=== PATIENT | female | born 1975 | race Caucasian/White ===

== ENCOUNTER 2018-03-14 11:59 | Outpatient (REF) | payer MEDICAID, SELFPAY | END 2018-03-14 12:19 | LOC: LBN 11:59 | PROVIDERS: PCP Nurse Practitioner Family; Visit Provider Nurse Practitioner Women's Health | DX: N90.89 Other specified noninflammatory disorders of vulva and perineum (principal); R31.9 Hematuria, unspecified; R10.9 Unspecified abdominal pain | CPT/HCPCS: 87529; 87086 ==

== ENCOUNTER 2018-03-21 14:03 | Outpatient (REF) | payer MEDICAID, SELFPAY ==
--- NOTE | 2018-03-21 13:20 | PAPFT_PTH ---
PATIENT: Darnell Fall LOC: [facility] U#:[id number] AGE/SX: 43/F ROOM: RE03/21/[address]: Daysi Mancini NP : 1975 BED: DIS: 03/21/2018 SPEC #: [id number] RECD: 03/21/18 18:05 STATUS: ELANA REMoses #: [id number] ADOLPH: 03/21/18 13:[address]: Daysi Mancini NP DEPT: [facility] Cytology RECD BY: Jennifer Negrete ENTERED: 03/21/18 18:05 SP TYPE: PAPFT OTHR DR: Alaina Navarrete APRN Tissues: 1 - CX/ENDOCX FOR PAP SMEARS Procedures: PAP THIN PREP/UVM Screening HPV DNA PROBE Comments: [id number] (CHLAMYDIA/GC)
[2018-03-22 13:57] LABS: Chlamydia Result Negative; GC Result Negative; Specimen Description SEE COMMENTS
== END 2018-03-21 14:23 ==
LOC: LBN 14:03
PROVIDERS: PCP Nurse Practitioner Family; Visit Provider Nurse Practitioner Women's Health
DX: Z12.4 Encounter for screening for malignant neoplasm of cervix (principal); Z11.51 Encounter for screening for human papillomavirus (HPV); Z11.3 Encounter for screening for infections with a predominantly sexual mode of transmission
CPT/HCPCS: 87491; 87591; 88142; 87624

== ENCOUNTER 2018-03-29 00:34 | Outpatient (CLI) | payer MEDICAID, SELFPAY ==
--- NOTE | 2018-03-29 12:50 | DI.MAMMO_ITS ---
SYMPTOMS/DIAGNOSIS: SCREENING, Z12.31, BASELINE MAMMOGRAM: Mammograms were interpreted according to the usual protocol including computer analysis with CAD system, tomosynthesis and C view imaging. The breasts are of moderate density with fairly symmetrical distribution of fibroglandular tissue. No dominant mass or clumped microcalcification is identified in either breast. Today's examination is a baseline examination. CONCLUSION: No specific evidence of malignancy at this time. Routine screening examinations are suggested at yearly intervals due to the family history of breast carcinoma. Category I. Breast density Category B. MQSA ASSESSMENT OF FINDINGS: Negative. Category 1. Patient will receive a letter notifying them of these results. BI-RADS category B. There are scattered areas of fibroglandular density.
== END 2018-03-29 00:54 ==
PROVIDERS: PCP Nurse Practitioner Family; Visit Provider Nurse Practitioner Women's Health
DX: Z12.31 Encounter for screening mammogram for malignant neoplasm of breast (principal); Z80.3 Family history of malignant neoplasm of breast
CPT/HCPCS: 77063; 77067

== ENCOUNTER 2018-03-30 00:24 | Outpatient (CLI) | payer MEDICAID, SELFPAY ==
--- NOTE | 2018-03-30 12:49 | DI.US_ITS ---
SYMPTOMS/DIAGNOSIS: PELVIC PAIN LT SIDED, R10.2 PELVIC ULTRASOUND: Pelvic ultrasound was performed transabdominally and transvaginally. Please see the accompanying data sheet for measurements of the pelvic structures. There is a thickened somewhat heterogeneous endometrial stripe measuring up to about 10 mm in thickness. The myometrium is grossly unremarkable in appearance. The ovaries have a normal appearance with little if any visible follicle formation. No free fluid identified in the cul-de-sac. Limited scanning of the kidneys is within normal limits. CONCLUSION: Abnormally thickened endometrial stripe in a meron or postmenopausal patient, consider endometrial biopsy to exclude neoplasm.
== END 2018-03-30 00:44 ==
PROVIDERS: PCP Nurse Practitioner Family; Visit Provider Nurse Practitioner Women's Health
DX: R10.2 Pelvic and perineal pain (principal); R93.89 Abnormal findings on diagnostic imaging of other specified body structures; Z78.0 Asymptomatic menopausal state
CPT/HCPCS: 76830; 76856

== ENCOUNTER 2018-05-09 15:52 | Outpatient (REF) | payer MEDICAID, SELFPAY ==
--- NOTE | 2018-05-09 14:30 | ENDOMET_PTH ---
PATIENT: Darnell Fall LOC: [facility] U#:[id number] AGE/SX: 43/F ROOM: RE05/09/[address]: Daysi Mancini NP : 1975 BED: DIS: 05/09/2018 SPEC #: [id number] RECD: 05/09/18 17:48 STATUS: ELANA REQ #: [id number] ADOLPH: 05/09/18 14:[address]: Addis MARIANO,Daysi DEPT: Surgical Specimen RECD BY: Jennifer Negrete ENTERED: 05/09/18 17:48 SP TYPE: Endomet OTHR DR: Alaina Navarrete APRN Tissues: 1 - ENDOMETRIUM BX/CURRETTE Procedures: GROSS AND MICRO LEVEL 4 Comments: [id number]
== END 2018-05-09 16:12 ==
LOC: LBN 15:52
PROVIDERS: PCP Nurse Practitioner Family; Visit Provider Nurse Practitioner Women's Health
DX: N91.2 Amenorrhea, unspecified (principal); N84.0 Polyp of corpus uteri; N85.8 Other specified noninflammatory disorders of uterus
CPT/HCPCS: 88305

== ENCOUNTER 2018-06-19 13:24 | Outpatient (CLI) | payer MEDICAID, SELFPAY ==
[2018-06-19 14:11] LABS: HCT 46.6 % (36.0-46.0); HGB 15.8 g/dL (12.0-15.5)
[2018-06-19 14:23] LABS: HCG Quant, Pregnancy 2 mIU/mL (1-3)
== END 2018-06-19 13:44 ==
PROVIDERS: PCP Nurse Practitioner Family; Visit Provider Obstetrics & Gynecology
DX: N92.6 Irregular menstruation, unspecified (principal); Z01.818 Encounter for other preprocedural examination
CPT/HCPCS: 36415; 86850; 86900; 86901; 84702; 84703; 85014; 85018

== ENCOUNTER 2018-06-27 07:38 | Day surgery (SDC) | payer MEDICAID, SELFPAY ==
--- NOTE | 2018-06-19 15:32 | W.PM.HP.N ---
Assessment and Plan (1) Irregular menstrual cycle: Current visit: No Status: Acute probable endometrial polyp thickened endometrium on US Plan: Operative hysteroscopy , endometrial polypectomy D+C Procedure explained to patient r/b/a reviewed all questions asked and answered consent reviewed and signed Review of Systems Review of Systems All systems reviewed & are unremarkable except as noted in HPI and below PFSH Surgical History Cholecystectomy Excision, Lesion (04/11/17) Open Carpal Tunnel release (06/14/17) Open Carpal Tunnel release (07/19/17) Tonsillectomy Family History Mother Mental disorder Stroke Father Substance abuse Grandmother Stroke Social History Smoking/Tobacco Use Status: Current every day Female Reproductive History Menstrual Menopause type: natural Meds Home Medications Medication Instructions Recorded Confirmed Type bupropion HCl 450 mg PO DAILY 01/26/13 06/19/18 History albuterol sulfate [Proair Hfa] 1 - 2 puff INHALATION Q4-6H PRN #1 08/25/16 06/19/18 History inhaler blood sugar diagnostic [Glucose #100 strip 09/09/16 05/18/18 History Test Strip] blood-glucose meter #1 unit 09/09/16 05/18/18 History lancets #100 ea 09/09/16 06/19/18 History acetaminophen 1,000 mg PO TID #180 tab-cap 07/19/17 06/19/18 Rx empagliflozin [Jardiance] 25 mg PO DAILY #90 tab-cap 07/26/17 06/19/18 Rx omeprazole 40 mg PO DAILY #90 tab-cap 09/26/17 06/19/18 Rx metformin 1,000 mg PO BID #180 tab-cap 10/02/17 06/19/18 Rx escitalopram oxalate 20 mg PO DAILY tab-cap 11/02/17 06/19/18 History lamotrigine 150 mg PO BID tab-cap 11/08/17 06/19/18 History Atorvastatin Calcium 20 mg PO DAILY #90 tab-cap 12/07/17 06/19/18 Clinic aspirin [Aspir 81] 81 mg PO DAILY #90 tab-cap 12/07/17 06/19/18 Rx sitagliptin [Januvia] 100 mg PO DAILY #90 tab-cap 12/07/17 06/19/18 Rx Allergies Allergy/AdvReac Type Severity Reaction Status Date / Time CALAMARI Allergy Severe ANAPHALXIS, Uncoded 06/19/18 14:59 hives Exam Const General: cooperative Nutritional Appearance: obese Orientation: alert and awake Chest Chest: normal inspection of the chest Resp Effort & Inspection: normal respiratory effort Auscultation: clear to auscultation bilaterally Cardio Palpation: normal PMI Rate: regular rate Rhythm: regular rhythm Heart Sounds: S1 normal and S2 normal GI Inspection: normal to inspection Palpation: soft External Female Exam: external appearance normal Speculum Exam - Vagina: normal appearance of the vagina Speculum Exam - Cervix: normal appearance of the cervix Bimanual Exam- Vagina & Uterus: normal bimanual exam Other: pelvic us 10 mm endometrial thickness endometrial bx 05/22 suggestive of endometrial polyp
[2018-06-27] VITALS (13 sets, daily range): BP systolic 145–174; BP diastolic 79–115; PULSE 74–95; RESP 13–39; TEMP 35.6–36.6; O2SAT 92–99
[2018-06-27] MEDS: Lactated Ringers 1,000 ML 125 ML IV ×2 (08:32→14:07)
[2018-06-27] MEDS: Insulin REGULAR-Human 100 UNITS/ML UNIT 8 UNITS IV (09:08)
[2018-06-27] MEDS: Ketorolac 30 MG/ML VIAL IVP (11:45)
--- NOTE | 2018-06-27 12:11 | ENDOMET_PTH ---
PATIENT: Darnell Fall LOC: [facility] U#:[id number] AGE/SX: 43/F ROOM: RE06/27/[address]: Elizabeth Pineda MD : 1975 BED: DIS: 06/27/2018 SPEC #: [id number] RECD: 06/27/18 17:19 STATUS: ELANA REMoses #: [id number] ADOLPH: 06/27/18 12:[address]: Elizabeth Pineda DEPT: Surgical Specimen RECD BY: Jennifer Negrete ENTERED: 06/27/18 17:24 SP TYPE: Endomet OTHR DR: Alaina Navarrete APRN Tissues: 1 - ENDOMETRIUM BX/CURRETTE Procedures: GROSS AND MICRO LEVEL 4 Comments: [id number]
[2018-06-27] MEDS: fentaNYL 100 MCG/2 ML VIAL IVP ×2 (12:50→13:14)
[2018-06-27] MEDS: HYDROmorphone 2 MG/ML VIAL IVP (13:57)
[2018-06-27] MEDS: Normal Saline Flush 10 ML SYR IV (13:57)
[2018-06-27] MEDS: Ketorolac 15 MG/ML VIAL IVP (15:22)
[2018-06-27] MEDS: HYDROcodone 5/Acetaminophen 325 TAB PO (16:05)
--- NOTE | 2018-06-28 10:41 | ROE_ITS ---
REPORT OF OPERATIVE PROCEDURE DATE OF PROCEDURE June 27, 2018 PREOPERATIVE DIAGNOSES 1. Menorrhagia. 2. Dysfunctional uterine bleeding. POSTOPERATIVE DIAGNOSES 1. Menorrhagia. 2. Dysfunctional uterine bleeding. 3. Endometrial polyp. PROCEDURES SURGEON Elizabeth Pineda M.D. ANESTHESIA General. COMPLICATIONS None. ESTIMATED BLOOD LOSS Less than 50 cc HYSTEROSCOPIC FLUID DEFICIT 300 cc FINDINGS Thickened irregular proliferative endometrium with central endometrial polyp. PROCEDURE The patient was taken to the Operating Room, where she was properly identified. She was then placed on the operating table in a dorsal supine position. General Anesthesia was induced without difficult y. She was then placed in the dorsal lithotomy position. Novatriss boots were on. She was prepped and [place] ped in a normal sterile fashion. A formal time-out procedure was then performed, confirming patient and procedure with all surgical personnel present. A red rubber catheter was then used to drain the b ladder of clear urine. A bivalved speculum was placed. The cervix was visualized, grasped on the anterior lip with a single -tooth tenaculum. The cervix was dilated to #16-Martiniquais using the Ramos dilators. The hysteroscope wa s advanced into the uterine cavity without difficulty. A thorough inspection ensued with the findings above. The MyoSure apparatus was advanced through the hysteroscope into the uterine cavity and a tho rough morcellation of the polyp and thickened endometrium was performed. Post procedure, both ostia w ere visible and the endometrium was thin and homogenous without endometrial polyp. The pathology spec imen was sent to pathology for permanent evaluation. All equipment was removed from the uterus. The s brett-tooth tenaculum was removed. There was no bleeding from the tenaculum site. Hemostasis was conf irmed. the patient was awakened and taken to Recovery in stable condition. Sponge, lap, needle and in strument counts were correct x2. CC: [facility]
== END 2018-06-27 16:45 | disposition home or self-care (01) ==
PROVIDERS: PCP Nurse Practitioner Family; Visit Provider Obstetrics & Gynecology
PROC: 0UDB8ZZ Extraction of Endometrium, Via Natural or Artificial Opening Endoscopic (ICD-10-PCS; CPT 58558; principal; 2018-06-27 10:00)
DX: N92.0 Excessive and frequent menstruation with regular cycle (principal); N93.8 Other specified abnormal uterine and vaginal bleeding; N84.0 Polyp of corpus uteri; F17.210 Nicotine dependence, cigarettes, uncomplicated
CPT/HCPCS: 58558; 88305; NC; J1100; J1885; J2250; J2405; J3010

== ENCOUNTER 2019-02-20 14:42 | Outpatient (CLI) | payer MEDICAID, SELFPAY ==
[2019-02-20 16:48] LABS: Ferritin 268 ng/mL (8-388); Magnesium 1.9 mg/dL (1.8-2.4)
== END 2019-02-20 15:02 ==
PROVIDERS: PCP Nurse Practitioner Family; Visit Provider Nurse Practitioner
DX: G47.62 Sleep related leg cramps (principal)
CPT/HCPCS: 36415; 82728; 83735

== ENCOUNTER 2019-04-19 00:52 | Outpatient (CLI) | payer MEDICAID, SELFPAY ==
--- NOTE | 2019-04-19 07:57 | DI.US_ITS ---
EXAM: US PELVIS TRANSVAGINAL CLINICAL HISTORY: focal atypical hyperplasia on EM Bx, N85.02 TECHNIQUE: Ultrasound performed using standard protocol. COMPARISON: US PELVIS TRANSVAGINAL from 03/30/2018 FINDINGS: The uterus measures 6.4 cm long by 2.8 cm AP x 4.2 cm transverse. The endometrial stripe is within n ormal limits at 3.3 millimeters. There is a tiny amount of fluid seen within the endometrial canal. The right ovary measures 1.6 x 0.7 x 0.7 centimeters. The left ovary measures 1.8 x 1.5 x 1.4 centim eters. The ovaries are unremarkable. There is normal blood flow to the ovaries. No evidence of tor marylu. No free pelvic fluid or hydronephrosis. IMPRESSION: Tiny amount of free fluid within the endometrial canal. Otherwise unremarkable pelvic ultrasound.
[2019-04-19 09:16] LABS: Hemoglobin A1C 10.3 % (4.5-6.2)
[2019-04-19 10:41] LABS: COMMENT (LAB VIEW ONLY) 18.65 mg/dL; Microalb ug/mg Crea 24.1 ug/mg Cr
[2019-04-19 10:42] LABS: ALT 69 U/L (14-59); AST 28 U/L (15-37); Albumin 3.4 g/dL (3.4-5.0); Alkaline Phosphatase 159 U/L (46-116); Anion Gap 9.6 mmol/L (3-11); BUN 7 mg/dL (7-18); Bilirubin, Total 0.4 mg/dL (0.2-1.0); CO2 29.4 mmol/L (21.0-32.0); CREATININE 0.88 mg/dL (0.55-1.02); Calcium 8.9 mg/dL (8.5-10.1); Calculated LDL 98 mg/dL; Chloride 102 mmol/L (98-107); Cholesterol 167 mg/dL (50-200); Glucose 285 mg/dL (70-100); HDL Cholesterol 49 mg/dL (40-60); Potassium 3.9 mmol/L (3.5-5.1); Sodium 141 mmol/L (136-145); Total Protein 6.4 g/dL (6.4-8.2); Triglyceride 101 mg/dL (30-150)
== END 2019-04-19 01:12 ==
PROVIDERS: PCP Nurse Practitioner Family; Visit Provider Obstetrics & Gynecology
DX: N85.02 Endometrial intraepithelial neoplasia [EIN] (principal); E11.9 Type 2 diabetes mellitus without complications; E78.5 Hyperlipidemia, unspecified
CPT/HCPCS: 36415; 80053; 80061; 76830; 76856; 82043; 82570; 83036

== ENCOUNTER 2019-04-25 11:51 | Outpatient (REF) | payer MEDICAID, SELFPAY ==
--- NOTE | 2019-04-25 11:20 | ENDOMET_PTH ---
PATIENT: Darnell Fall LOC: [facility] U#:[id number] AGE/SX: 44/F ROOM: RE04/25/[address]: Tone Tidwell MD : 1975 BED: DIS: 04/25/2019 SPEC #: [id number] RECD: 04/25/19 17:24 STATUS: ELANA REMoses #: [id number] ADOLPH: 04/25/19 11:[address]: Tone Tidwell DEPT: Surgical Specimen RECD BY: Jennifer Negrete ENTERED: 04/25/19 17:25 SP TYPE: Endomet OTHR DR: Alaina Navarrete APRN Tissues: 1 - ENDOMETRIUM BX/CURRETTE Procedures: GROSS AND MICRO LEVEL 4 Comments: [id number]
== END 2019-04-25 12:11 ==
LOC: LBN 11:51
PROVIDERS: PCP Nurse Practitioner Family; Visit Provider Obstetrics & Gynecology
DX: N92.6 Irregular menstruation, unspecified (principal); N91.2 Amenorrhea, unspecified; Z87.410 Personal history of cervical dysplasia
CPT/HCPCS: 88305

== ENCOUNTER 2020-01-13 02:26 | Outpatient (CLI) | payer MEDICAID, SELFPAY ==
[2020-01-13 14:01] LABS: COMMENT (LAB VIEW ONLY) 70.62 mg/dL; Microalb ug/mg Crea 10.6 ug/mg Cr
[2020-01-13 14:12] LABS: Prothrombin Time 9.6 sec (9.3-11.0)
[2020-01-13 14:50] LABS: ALT 41 U/L (14-59); AST 32 U/L (15-37); Albumin 3.1 g/dL (3.4-5.0); Alkaline Phosphatase 120 U/L (46-116); Anion Gap 10.2 mmol/L (3-11); BUN 8 mg/dL (7-18); Bilirubin, Total 0.4 mg/dL (0.2-1.0); CO2 25.8 mmol/L (21.0-32.0); CREATININE 0.89 mg/dL (0.55-1.02); Calcium 8.6 mg/dL (8.5-10.1); Calculated LDL 108 mg/dL (<100); Chloride 105 mmol/L (98-107); Cholesterol 163 mg/dL (<200); Glucose 159 mg/dL (74-106); HDL Cholesterol 35 mg/dL (40-60); Sodium 141 mmol/L (136-145); Total Protein 5.9 g/dL (6.4-8.2); Triglyceride 103 mg/dL (<150)
== END 2020-01-13 02:46 ==
PROVIDERS: PCP Nurse Practitioner Family; Visit Provider Nurse Practitioner Family
DX: R60.0 Localized edema (principal); E11.9 Type 2 diabetes mellitus without complications; E78.5 Hyperlipidemia, unspecified
CPT/HCPCS: 80053; 80061; 82043; 82570; 84443; 85610

== ENCOUNTER 2020-02-19 01:34 | Outpatient (CLI) | payer MEDICAID, SELFPAY ==
--- NOTE | 2020-02-19 06:15 | DI.US_ITS ---
EXAM: US ABDOMEN INDICATION: hypoalbuminemia,edema both feet,? cirrhosis,e88.09 COMPARISON: US US PELVIS TRANSVAGINAL from 04/19/2019 TECHNIQUE: Ultrasound abdomen performed using standard protocol FINDINGS: Abdominal ultrasound was performed according to the usual protocol. The liver is incompletely visualized, hepatic parenchyma is echogenic and of coarse texture, presumed hepatic steatosis.. No specific evidence of cirrhosis on this limited scan. Patient has had a prior cholecystectomy. No biliary dilatation. Pancreas appears intact as visualized. Spleen is unremarkable in appearance with no focal lesion. Kidneys are normal in size and shape. No renal mass, hydronephrosis, or nephrolithiasis. Abdominal aorta and IVC are of normal diameter. IMPRESSION: Presumed hepatic steatosis. Otherwise unremarkable examination post cholecystectomy.
== END 2020-02-19 01:54 ==
PROVIDERS: PCP Nurse Practitioner Family; Visit Provider Nurse Practitioner Family
DX: R60.0 Localized edema (principal); E88.09 Other disorders of plasma-protein metabolism, not elsewhere classified; Z90.49 Acquired absence of other specified parts of digestive tract
CPT/HCPCS: 76700

== ENCOUNTER 2020-03-18 02:12 | Outpatient (CLI) | payer MEDICAID, SELFPAY ==
[2020-03-18 09:54] LABS: Abs Immature Grans 0.06 10^3/uL (0.0-0.06); Absolute Basophil Count 0.03 10^3/uL (0.0-0.2); Absolute Eosinophil Count 0.48 10^3/uL (0.0-0.7); Absolute Lymphocyte Count 2.43 10^3/uL (1.2-3.4); Basophils % 0.3; Eosinophils % 4.5; HCT 46.4 % (36.0-46.0); HGB 15.6 g/dL (11.2-15.7); Immature Grans % 0.6; Lymphocytes % 22.7; MCH 30.8 pg (27.0-33.0); MCHC 33.6 % (32.0-36.0); MCV 91.7 fL (80-95); MPV 11.8 fL (8.0-11.0); Monocytes % 7.5; Neutrophils % 64.4; Nucleated RBC 0 %; Platelet Count 177 10^3/uL (130-400); RBC 5.06 10^6/uL (3.93-5.22); RDW 13.6 % (11.7-14.6); RDW-SD 45.7 fL
[2020-03-18 10:19] LABS: Iron 59 ug/dL (50-170); Total Iron Binding Capacity 241 ug/dL (250-450); Transferrin Sat 24 % (15-50)
[2020-03-18 10:30] LABS: Ferritin 247 ng/mL (8-252); GGT 479 U/L (5-55)
[2020-03-19 09:26] LABS: HBs Antibody, Quant <3.1 mIU/mL (See Note); Hepatitis B Surface Ab Negative (See Note)
[2020-03-19 09:32] LABS: Hepatitis B Surface Ag Negative (Negative)
[2020-03-19 10:15] LABS: Hepatitis C Ab w Rflx HCV PCR Negative (Negative)
[2020-03-19 11:06] LABS: Hep A Total Ab w Rflx IgM Positive (Negative)
[2020-03-19 12:32] LABS: Hep A Antibody IgM Negative (Negative)
== END 2020-03-18 02:32 ==
PROVIDERS: PCP Nurse Practitioner Family; Visit Provider Nurse Practitioner Family
DX: K76.0 Fatty (change of) liver, not elsewhere classified (principal)
CPT/HCPCS: 36415; 86706; 86709; 86803; 87340; 82728; 82977; 83540; 83550; 85025; 86704

== ENCOUNTER 2021-05-21 01:48 | Outpatient (CLI) | payer MEDICAID, SELFPAY ==
--- NOTE | 2021-05-21 09:42 | DI.RAD_ITS ---
Exam(s) XR SCOLIOSIS T-L SPINE EXAM: XR SCOLIOSIS T-L SPINE CLINICAL HISTORY: Scoliosis evaluation. TECHNIQUE: 2D digital imaging was performed. COMPARISON: No exams were available for comparison FINDINGS: Scoliosis: No significant scoliosis is identified. There is a curvature of less than 1 degree. Vertebrae: No anomalies seen. Moderate degenerative changes are seen in the cervical, thoracic and montse mbar spines. Remainder of the visualized osseous and soft tissue structures: No acute findings. Surgical clips are seen in the right upper quadrant of the abdomen. IMPRESSION: No significant thoracolumbar scoliosis. DATA REPOSITORY: RADIATION DOSE DELIVERED:
== END 2021-05-21 02:08 ==
PROVIDERS: PCP Nurse Practitioner Adult Health; Visit Provider Nurse Practitioner Adult Health
DX: M54.89 Other dorsalgia (principal); R10.9 Unspecified abdominal pain
CPT/HCPCS: 72081

== ENCOUNTER 2021-06-01 02:54 | Outpatient (CLI) | payer MEDICAID, SELFPAY ==
[2021-06-01 09:55] LABS: HCT 45.5 % (36.0-46.0); MCH 29.8 pg (27.0-33.0); MCV 90.5 fL (80-95); MPV 10.3 fL (8.0-11.0); Platelet Count 241 10^3/uL (130-400); RBC 5.03 10^6/uL (3.93-5.22); RDW 13.4 % (11.7-14.6); RDW-SD 43.9 fL; WBC 13.59 10^3/uL (4.4-10.8)
[2021-06-01 11:08] LABS: ALT 26 U/L (14-59); AST 13 U/L (15-37); Albumin 3.1 g/dL (3.4-5.0); Alkaline Phosphatase 113 U/L (46-116); Anion Gap 7.8 mmol/L (3-11); BUN 11 mg/dL (7-18); Bilirubin, Total 0.3 mg/dL (0.2-1.0); CO2 30.2 mmol/L (21.0-32.0); CREATININE 0.9 mg/dL (0.55-1.02); Calculated LDL 189 mg/dL (<100); Chloride 101 mmol/L (98-107); Cholesterol 249 mg/dL (<200); Glucose 210 mg/dL (74-106); HDL Cholesterol 39 mg/dL (40-60); Potassium 4.5 mmol/L (3.5-5.1); Sodium 139 mmol/L (136-145); TSH (W/Ref FT4) 2.05 uIU/mL (0.36-3.74); Total Protein 6.2 g/dL (6.4-8.2); Triglyceride 109 mg/dL (<150)
[2021-06-02 09:49] LABS: Hepatitis C Ab w Rflx HCV PCR Negative (Negative)
== END 2021-06-01 02:55 | disposition home or self-care (01) ==
LOC: LBO 02:54
PROVIDERS: PCP Nurse Practitioner Adult Health; Visit Provider Nurse Practitioner Adult Health
DX: E11.42 Type 2 diabetes mellitus with diabetic polyneuropathy (principal); E66.01 Morbid (severe) obesity due to excess calories; E78.5 Hyperlipidemia, unspecified; Z11.59 Encounter for screening for other viral diseases
CPT/HCPCS: 36415; 80053; 80061; 85027; 86803; 84443

== ENCOUNTER 2021-06-22 00:22 | Outpatient (CLI) | payer MEDICAID, SELFPAY ==
--- NOTE | 2021-06-22 08:00 | ETT_ITS ---
APPROVED REPORT Exam: Exercise Treadmill Patient Location: Out-Patient Room/Bed: Stress Nurse: Luda Giordano RN Ordering Provider:INGRIS PORTILLO, Contact Number: [phone] BMI: 40.16 Baseline Rhythm: Sinus Rhythm Indications: CHEST PAIN Medical History Medical History: Diabetic neuropathy, Anxiety, Depression, DM, RY, GERD, HLD, Tobacco abuse, Obesity Cardiac Medications: Omeprazole, Glipizide, Atorvastatin, Albuterol sulfate inhaler Allergies: No known drug allergies Cardiac Risk Factors: Hyperlipidemia, Diabetes (non-insulin), FHX of CAD, Smoking (current), Asthma, Obesity Previous Cardiac Procedures: None Pretest Chest Pain Characteristics: Non-exertional Chest pain, 1/10 left sternal pressure that has be en present since waking up this morning. Exercise History: Sedentary Physical Disabilities: None Lung Sounds: LCTA/diminished Stress Test Details Test: Exercise stress testing was performed using a Jd protocol. Rest Stress HR Resting HR Supine: 76 bpm Max Heart Rate (APMHR): 173 bpm Resting HR Standin bpm Target HR (85% APMHR): 147 bpm Max HR Achieved: 156 bpm % of APMHR: 90 Recovery HR: 88 bpm HR response to stress: Accelerated HR response to stress BP Resting BP Supine: 160/86 mmHg Resting BP Standin/90 mmHg Max BP: 216/88 mmHg Recovery BP: 144/72 mmHg BP response to stress: Normal blood pressure response to stress. Comment: unable to obtain BP during exercise and in first minute of recovery. ECG Resting ECG: Sinus Rhythm Ectopy: None Comment: T wave inversion in lead III when patient standing. Stress ECG: Sinus Tachycardia ST Change: No significant ST segment changes noted Arrhythmia: rare PVC Recovery ECG: Sinus Rhythm Recovery ST Change: No significant ST segment changes noted Recovery Arrhythmia: rare PVC Comment: T wave inversion present when standing in lead III returned to upright position once lying d own. Clinical Reason for Termination: Dyspnea Stress Symptoms: Dyspnea, Leg Fatigue Exercise duration: 2 min10 sec Highest Stage Reached: Stage 1: 1.7 mph at 10% grade. Exercise capacity: 4.64 METs Silveira Treadmill Score: 1.7 Rate Pressure Product: 27752 Stress ECG Conclusion 1. Resting electrocardiogram was within normal limits 2. Patient exercised on the Jd protocol and completed a workload of 4.64 METS, stopping due to beto rtness of breath and leg fatigue 3. Rapid increase in heart rate with exercise suggests deconditioning. Patient achieved 90% of predi cted heart rate for age 4. There was no electrocardiographic evidence of myocardial ischemia 5. Rare PVCs were seen Silveira Treadmill Score is 1.7 which is Moderate risk. Stress Test Summary STAGE Time (mins) Speed (mph) Grade (%) HR BP SYMPTOMS METS Supine 76 160/86 Standing 94 144/90 SpO2 99% 1 3 1.7 10 severe SOB; SpO2 98% 4.6 1 min recovery 133 3 min recovery 101 216/88 mild SOB 6 min recovery 88 144/72 Patient did not endorse change in chest pressure during exercise test. Chest pressure remained a cons tant 06/14. Patient did stumble and fall to knees when transitioning from treadmill to strecher. Rosina nt states this happens, my legs just give out. Patient denies any dizziness or lightheadedness that would have caused a fall, relates it to leg fatigue.
== END 2021-06-22 00:42 ==
PROVIDERS: PCP Nurse Practitioner Adult Health; Visit Provider Nurse Practitioner Adult Health
DX: R07.9 Chest pain, unspecified (principal); E78.5 Hyperlipidemia, unspecified; E11.9 Type 2 diabetes mellitus without complications; Z82.49 Family history of ischemic heart disease and other diseases of the circulatory system; F17.210 Nicotine dependence, cigarettes, uncomplicated; J45.909 Unspecified asthma, uncomplicated; E66.9 Obesity, unspecified
CPT/HCPCS: 93017

== ENCOUNTER 2021-07-12 03:41 | Outpatient (CLI) | payer MEDICAID, SELFPAY ==
[2021-07-12 07:58] LABS: Abs Immature Grans 0.06 10^3/uL (0.0-0.06); Absolute Basophil Count 0.04 10^3/uL (0.0-0.2); Absolute Eosinophil Count 0.34 10^3/uL (0.0-0.7); Absolute Lymphocyte Count 3.38 10^3/uL (1.2-3.4); Absolute Monocyte Count 1.18 10^3/uL (0.1-0.8); Absolute Neutrophil Count 8.58 10^3/uL (1.2-6.7); Basophils % 0.3; Eosinophils % 2.5; HCT 45.9 % (36.0-46.0); HGB 15.1 g/dL (11.2-15.7); Immature Grans % 0.4; Lymphocytes % 24.9; MCH 29.7 pg (27.0-33.0); MCHC 32.9 % (32.0-36.0); MCV 90.4 fL (80-95); MPV 10.1 fL (8.0-11.0); Monocytes % 8.7; Neutrophils % 63.2; Nucleated RBC 0 %; Platelet Count 226 10^3/uL (130-400); RBC 5.08 10^6/uL (3.93-5.22); RDW 13.5 % (11.7-14.6); RDW-SD 45.2 fL; WBC 13.58 10^3/uL (4.4-10.8)
[2021-07-12 08:08] LABS: Hemoglobin A1C 7.7 % (<5.7)
[2021-07-12 09:11] LABS: Calculated LDL 116 mg/dL (<100); Cholesterol 177 mg/dL (<200); HDL Cholesterol 41 mg/dL (40-60); Triglyceride 101 mg/dL (<150)
== END 2021-07-12 03:42 | disposition home or self-care (01) ==
LOC: LBO 03:42
PROVIDERS: PCP Nurse Practitioner Adult Health; Visit Provider Nurse Practitioner Adult Health
DX: E11.65 Type 2 diabetes mellitus with hyperglycemia (principal); E78.5 Hyperlipidemia, unspecified; D72.828 Other elevated white blood cell count
CPT/HCPCS: 36415; 80061; 83036; 85025

== ENCOUNTER 2021-08-09 03:17 | Outpatient (CLI) | payer MEDICAID, SELFPAY ==
--- NOTE | 2021-08-09 07:00 | DI.MAMMO_ITS ---
Exam(s) MAMMO SCREENING EXAM: MAMMO SCREENING CLINICAL HISTORY: screening,Z12.39 TECHNIQUE: Mammograms were interpreted according to the usual protocol including computer analysis w [email or web address] CAD system, tomosynthesis and C-view imaging. COMPARISON: 2018 FINDINGS: The breasts are composed of scattered fibroglandular densities, Breast Density category B. No suspicious masses or suspicious microcalcifications are seen. No skin thickening or abnormal axillary lymph nodes are seen. There has been no significant change from prior exams. IMPRESSION: BI-RADS Category 1, Negative mammogram Yearly screening mammography is recommended. Breast Density - Category B, scattered fibroglandular densities. A negative radiographic report should not delay biopsy if a dominant or clinically suspicious mass is present. Up to ten percent of cancers are not identified on mammography. A negative report may reinforce clinical impression. Adenosis and dense breasts may obscure an underlying neoplasm. False positive reports average 6 to 10%. Patient will receive a letter notifying them of these results.
== END 2021-08-09 03:37 ==
PROVIDERS: PCP Nurse Practitioner Adult Health; Visit Provider Nurse Practitioner Adult Health
DX: Z12.31 Encounter for screening mammogram for malignant neoplasm of breast (principal)
CPT/HCPCS: 77063; 77067

== ENCOUNTER 2021-08-19 02:00 | Outpatient (CLI) | payer MEDICAID, SELFPAY ==
--- NOTE | 2021-08-19 10:30 | DI.CT_ITS ---
Exam(s) CT CHEST/ABD/PEL W EXAM: CT CHEST/ABD/PEL W CLINICAL HISTORY: r/o suspicious mass/malignancy,WT LOSS,NAUSEA,VOMITING,RT SIDED BACK PAIN. TECHNIQUE: Imaging Protocol: Axial computed tomography images with coronal and sagittal reformatted images were created and reviewed CONTRAST MATERIAL: Intravenous: Omnipaque 350 Contrast volume:100 ml Oral: Yes. Oral contrast was administered for bowel opacification COMPARISON: No exams were available for comparison FINDINGS: CHEST: LUNGS: There are no infiltrates nor pleural effusions. No ominous pulmonary nodules. No focal findi ngs in trachea and mainstem bronchi. No bronchiectasis.. MEDIASTINUM: There is no hilar nor mediastinal adenopathy. Visualized thyroid unremarkable. CARDIAC: Heart size is normal. There is no pericardial effusion.Caliber of the thoracic aorta is wit hin normal limits. OSSEOUS: Small sclerotic bone density noted in the T11 vertebral body measuring 5 x 4 millimeters, pr obably benign bone island. No lytic osseous lesions evident.. ABDOMEN: There is no ascites. LIVER: There are no focal hepatic lesions nor dilatation of intrahepatic ducts. GALLBLADDER/BILIARY: The gallbladder is surgically absent. For CBD is not dilated. PANCREAS: No evidence of pancreatic mass nor dilatation of the pancreatic duct. SPLEEN: Spleen is not enlarged. There are no intrasplenic lesions. Splenic and portal veins are fraser nt. ADRENALS: There are small nodules at the genu of both adrenal glands,. KIDNEYS: Tiny cyst in the medial cortex of the left kidney lower pole measuring 4 millimeters. No ot her significant focal findings in the left kidney. A tiny 3 millimeter cyst is also noted in the opp osite-right kidney. No solid renal lesions. No calculi nor hydronephrosis. ABDOMINAL AORTA: Somewhat atherosclerotic but not enlarged. LYMPH NODES: There is no nauohuolfzaooce-ubnv-ccrant adenopathy. There are no abnormal mesenteric ma sses evident. ABDOMINAL WALL: No evidence of significant anterior abdominal wall nor inguinal hernia. GI: There is no evidence of bowel obstruction. PELVIS: LYMPH NODES: There is no intrapelvic nor inguinal adenopathy. GI: No evidence of appendicitis.No evidence of sigmoid diverticulitis. URINARY BLADDER: Some circumferential bladder wall thickening is noted. REPRODUCTIVE: Uterus and adnexal regions appear unremarkable. No free fluid. OSSEOUS: No significant osseous lesions. Advanced chronic disc space narrowing at L4-5 and L5-S1 levels noted. Posterior osseous ridging note d at these 2 levels. No lytic osseous lesions identified. IMPRESSION: 1. No significant lung findings and no intrathoracic adenopathy. No pleural effusions. 2. The gallbladder surgically absent. The biliary tree is not dilated. 3. Benign-appearing sclerotic bone lesion noted in the T11 vertebral body, measuring 5 x 4 x 7 millim eter. This is probably benign bone island. There are no lytic osseous lesions. 4. One tiny cyst in each kidney, both measuring less than 1 cm. No solid renal masses. No calculi n or hydronephrosis. RADIATION DOSE DELIVERED: 1,969.02mGy.cm Total DLP DATA REPOSITORY: All CT scans at this facility are submitted to the National Radiology Data Registry (NRDR) Dose Index Registry (DIR) with the [employer] (ACR). RADIATION OPTIMIZATION: All CT scans at this facility use at least one of these dose optimization te chniques: automated exposure control; mA and/or kV adjustment per patient size (includes targeted exa ms where dose is matched to clinical indication); or iterative reconstruction.
[2021-08-19] MEDS: Breeza Beverage 473 ML BTL 950 ML PO (10:33)
[2021-08-19] MEDS: Omnipaque 350 MG/ML 50 ML BTL IJ (10:33)
[2021-08-19] MEDS: Omnipaque 350 MG/ML 100 ML BTL IJ (10:34)
== END 2021-08-19 02:20 ==
PROVIDERS: PCP Nurse Practitioner Adult Health; Visit Provider Nurse Practitioner Adult Health
DX: R63.4 Abnormal weight loss (principal); R11.2 Nausea with vomiting, unspecified; N28.1 Cyst of kidney, acquired; N32.89 Other specified disorders of bladder; Z90.49 Acquired absence of other specified parts of digestive tract; M54.89 Other dorsalgia
CPT/HCPCS: 74177; 71260; J3490; Q9967

== ENCOUNTER 2021-09-01 16:22 | Outpatient (REF) | payer MEDICAID, SELFPAY ==
--- NOTE | 2021-09-01 15:15 | PAPFT_PTH ---
PATIENT: Darnell Fall LOC: [facility] U#:[id number] AGE/SX: 46/F ROOM: RE09/01/[address]: Elma Jose DO : 1975 BED: DIS: 09/01/2021 SPEC #: [id number] RECD: 09/01/21 18:09 STATUS: ELANA REQ #: [id number] ADOLPH: 09/01/21 15:[address]: Elma Jose DEPT: [facility] Cytology RECD BY: Jennifer Negrete ENTERED: 09/01/21 18:10 SP TYPE: PAPFT OTHR DR: Cristiane Dubose APRN Tissues: 1 - CX/ENDOCX FOR PAP SMEARS Procedures: PAP THIN PREP/UVM Screening HPV DNA PROBE Comments: [id number]
--- OUTSIDE RECORDS SUMMARY | 2021-09-01 16:28 | XMS_ITS ---
:1975 Author Care Team Providers Name Role Phone [facility] Primary Care Provider [phone] KAYLENE GOLDBERG [facility] Primary Care Provider [phone] [facility] OTHER [phone] Allergies Code Code System Name Reaction Severity Status Onset Shellfish ? ? Active ? Derived Squid ? ? Active ? Medications Name Status Start Date Stop Date ? ? bupropion HCl XL 150 mg 24 hr tablet, extended release Active ? Not available Take 1 tablet every day by oral route. DILT-CD 180 mg capsule,extended release Active ? Not available Take 1 capsule every day by oral route. Imitrex 50 mg tablet Active ? Not availab le Take 1 tablet as needed by oral route. melatonin Active ? Not available 5 mg daily at bedtime omeprazole 20 mg capsule,delayed release Active ? Not available Take 1 capsule every day by oral route. ropinirole 1 mg tablet Active ? Not avail able TAKE 1 TABLET BY MOUTH 2 TO 3 HOURS BEFORE BEDTIME sertraline 100 mg tablet Active ? Not denice ilable Take 1 tablet every day by oral route. Slow-Mag 71.5 mg tablet,delayed release Active ? Not available Take 1 tablet twice a day by oral route for 30 days. Vitamin B-2 100 mg tablet Active ? Not a vailable Take 2 tablets twice a day by oral route. Problems Name Status Onset Date Source ? Type 2 Diabetes Mellitus Active 01/31/2019 ? Obesity Active 01/31/2019 ? Anxiety Active 01/31/2019 ? Tobacco User Active 01/31/2019 ? Depressive Disorder Active 01/31/2019 ? Insomnia Active 01/31/2019 ? Asthma Active 01/31/2019 ? Cramp in Lower Limb Active 01/31/2019 ? Snoring Active 01/31/2019 ? Nocturia Active 01/31/2019 ? Hypnapompic Hallucinations Active 01/31/2019 ? Obstructive Sleep Apnea Syndrome Active ? ? Restless Legs Active ? ? Procedures Date Name Performed by ? 01/31/2019 Polysomnogram Information not avai lable Results Lab Results Date Name Specimen Result Interpretation Description Value Range Status Address ? 02/20/2019 Magnesium, ? No observation ? ? ? [facility] or recorded. [facility]: [address] [place] [address] r, [facility] 02/20/2019 Ferritin, ? No observation ? ? ? [facility] or recorded. [facility]: [address] [place] [address], [facility] Past Encounters None recorded. Social History Tobacco Smoking Status Current Every Day Smoker Notes: 1/ 2ppd, started at age 6 Vaccine List None recorded. Plan of Care Reminders Provider Appointments None ? ? recorded. Lab None ? ? recorded. Referral None ? ? recorded. Procedures None ? ? recorded. Surgeries None ? ? recorded. Imaging None ? ? recorded. Vitals Height Weight BMI Blood Pressure 167.64 cm 129.95 kg 46.2 kg/m2 120/81.97 mm[Hg ]
== END 2021-09-01 16:23 | disposition home or self-care (01) ==
LOC: LBN 16:22
PROVIDERS: PCP Nurse Practitioner Adult Health; Visit Provider Obstetrics & Gynecology
DX: Z12.4 Encounter for screening for malignant neoplasm of cervix (principal); Z11.51 Encounter for screening for human papillomavirus (HPV); Z87.410 Personal history of cervical dysplasia
CPT/HCPCS: 88142; 87624

== ENCOUNTER 2021-09-08 03:01 | Outpatient (CLI) | payer MEDICAID, SELFPAY ==
[2021-09-08 15:30] LABS: TSH (W/Ref FT4) 1.97 uIU/mL (0.36-3.74)
[2021-09-08 22:13] LABS: Estradiol 27 pg/mL (See Note)
[2021-09-08 22:30] LABS: Prolactin 6.8 ng/mL (See Note)
== END 2021-09-08 03:02 | disposition home or self-care (01) ==
LOC: LBO 03:02
PROVIDERS: PCP Nurse Practitioner Adult Health; Visit Provider Obstetrics & Gynecology
DX: N91.2 Amenorrhea, unspecified (principal)
CPT/HCPCS: 36415; 82670; 84146; 84443

== ENCOUNTER 2021-09-10 02:17 | Outpatient (CLI) | payer MEDICAID, SELFPAY ==
[2021-09-10 12:02] LABS: Source Nasal/Nares
[2021-09-10 14:26] LABS: COVID-19 PCR Negative (Negative)
== END 2021-09-10 02:18 | disposition home or self-care (01) ==
LOC: LBO 02:17
PROVIDERS: PCP Nurse Practitioner Adult Health; Visit Provider Surgery
DX: Z20.822 Contact with and (suspected) exposure to COVID-19 (principal); Z01.818 Encounter for other preprocedural examination
CPT/HCPCS: 87635

== ENCOUNTER 2021-09-13 12:37 | Day surgery (SDC) | payer MEDICAID, SELFPAY ==
--- NOTE | 2021-09-13 06:42 | ENDO_ITS ---
Date of service: 09/13/21 Time of Service: 14:31 Endoscopy Report DATE OF PROCEDURE: 09/13/21 PRE-OP DIAGNOSIS: unintentional weight loss, Nausea POST-OP DIAGNOSIS: other (Gastritis and esophagitis) PROCEDURE: 1. EGD with biopsies 2. Colonoscopy SURGEON: Mony Mann ANESTHESIA TYPE: General:No Airway ESTIMATED BLOOD LOSS: 3 COMPLICATIONS: None DISPOSITION: same day INDICATIONS: Adrienne is a pleasant 46-year-old female with unintentional weight loss of about 30 pounds over the last year.? She has chronic nausea and decrease in appetite.? She complains of epigastric pain as well as new onset of constipation.? Although she has soft bowel movements she is unable to pass the bowel movements without having to bear down.? She has no family history of colon, rectal or esophageal cancer.? We discussed doing an upper endoscopy as well as a colonoscopy.? Risks, benefits, complications were reviewed with her and she wished to proceed. Risks, benefits and complications have been reviewed. Complications include but are not limited to bleeding, pain, perforation, missed small lesion/polyp, sore throat, aspiration and adverse reaction to the medications. Questions were entertained and answered to their satisfaction and they wished to proceed. No guarantees were given or implied. Proceed with colonoscopy and upper endoscopy PREP: Miralax/Dulcolax PROCEDURE START TIME: 14:31 PROCEDURE END TIME: 15:02 COLONOSCOPY RETRACTION TIME: 7 minutes FINDINGS: Inflammation of the stomach and esopahgus Normal colonoscopy PROCEDURE DESCRIPTION: After informed consent was obtained the patient was take to the procedure room and placed in a supine position. Monitors were applied and a time out was done. The patients name, date of , procedure type, allergies to medications and metal in their body was reviewed. A bite block was placed and the patient was sedated. Once sedated and comfortable the gastroscope was advanced through the oropharynx which was grossly normal into the esophagus. The proximal and mid- esophagus were normal. In the distal esophagus there was inflammation noted. The scope was advanced into the stomach and through the pylorus into the 3rd portion of the duodenum. The duodenum was noted to be inflammed. Biopsies were done. The scope was retracted back into the stomach. There was ,moderate inflammation noted in the antrum. Biopsies were done to rule out H. pylori. There were no ulcers. The scope was retro-flexed. The cardia and fundus were noted to be normal. There was a small hiatal hernia noted. The scope was retracted back into the esophagus and biopsies were done of the GE junction to rule out Valentine's. The Z line was regular. The GE junction was at 38 cm. While the patient was still sedated they were placed in a left decubitous position. A rectal exam was done. External exam was normal. Internal exam revealed a normal sphincter tone and no palpable masses. The scope was then introduced and retro-flexed. No internal hemorrhoids, masses or polyps were identified on retroflexion. The scope was then advanced to the cecum without difficulty. The ileocecal valve and appendiceal orifice were identified. The prep was good. The scope was then slowly retracted over 7 minutes back into the rectum. There were no Polyps and there was no diverticulosis noted. The scope was removed and the patient was woken up and taken back to Same day surgery in stable condition. The patient tolerated the procedure well and there were no immediate complications. Follow up: 10 years for the next colonoscopy. As needed for another EGD
--- NOTE | 2021-09-13 06:47 | W.PM.DSUDISC ---
Discharge Plan Disposition Patient Disposition: HOME Condition: Good Discharge Details Reason For Visit: Colonoscopy/EGD Attending Provider: Mony Mann Primary Care Provider: Cristiane Dubose Home Meds and New Rx's Prescriptions: New omeprazole 40 mg capsule,delayed release(DR/EC) 40 mg PO BID Qty: 60 0RF Continued (DME) pen needle, diabetic [Pen Needle] 31 gauge x 5/16 needle See Rx Instructions .ROUTE .MEDSUPPLY Qty: 100 3RF Rx Instructions: To administer liraglutide once daily. Dispense covered brand. (DME) lancets 28 gauge misc 1 ea Miscellaneous DAILY Qty: 100 3RF Rx Instructions: Dx: E11.9 to maintain HbA1c less than 7%. No insulin. PLEASE DISPENSE BRAND COVERED BY INSURANCE (DME) Blood Glucose Test Strip See Rx Instructions .ROUTE .MEDSUPPLY Qty: 100 3RF Rx Instructions: As directed to check blood glucose daily. No insulin. Dispense covered brand. atorvastatin 40 mg tablet 40 mg PO QHS Qty: 90 3RF Rx Instructions: Cholesterol and diabetes albuterol sulfate [ProAir HFA] 90 mcg/actuation HFA aerosol inhaler 1 - 2 puff Inhalation .Q4-6H PRN (Reason: shortness of breath or wheezing) Qty: 1 3RF Rx Instructions: DISPENSE ALBUTEROL INHALER BRAND COVERED BY INSURANCE aspirin 81 mg tablet,delayed release (DR/EC) 81 mg PO DAILY Qty: 90 3RF glipizide 5 mg tablet extended release 24 hr 5 mg PO DAILY Qty: 90 3RF quetiapine [Seroquel] 100 mg tablet 100 mg PO BID PRN0RF Rx Instructions: 09/08/21 Dayana Estrella prescribes Start 50mg am, 100 mg pm. Then 100mg bid prazosin 1 mg capsule 2 mg PO QHS 0RF Rx Instructions: 09/08/21 Dayana Estrella prescribes Discontinued omeprazole 40 mg capsule,delayed release(DR/EC) 40 mg PO DAILY Qty: 90 3RF Rx Instructions: Take 40 mg once daily in the morning at least 30-60 minutes before first meal bisacodyl [Dulcolax (bisacodyl)] 5 mg tablet,delayed release (DR/EC) 5 mg PO ONCE Qty: 4 0RF polyethylene glycol 3350 [Miralax] 17 gram/dose powder 17 g PO DAILY PRN (Reason: constipation) Qty: 119 0RF Rx Instructions: Constipation Discharge Instructions Instructions: Gastritis (DC), Diet for Stomach Ulcers and Gastritis (ED), GERD (Gastroesophageal Reflux Disease) (DC) Additional Instructions: Findings: inflammation of the stomach and esopahgus Normal colonoscopy Follow up: as needed Medications: I have sent in a new Rx for Omeprazole. Please take it 2 x a day Please call if you develop: fevers >101.5 Nausea or Vomiting Abdominal pain that is not transient Rectal bleeding that is more then a tbsp A hard abdomen and inability to pass gas DAY SURGERY UNIT POST ENDOSCOPY INSTRUCTIONS Instructions for everyone who is given Anesthesia: For your safety, please do the following for the next 24 Hours: a. Do not drive or operate dangerous equipment b. Do not drink alcohol beverages or use any recreational drugs for the first 24 hours or while taking pain medications. The medications in your body may have a reaction that can be dangerous. c. Do not make any important decisions or sign any important papers 1. Generally there are no restrictions on your activity after a day or so has gone by, but you may feel a bit fatigued for a few days. 2. After you arrive home you may have a light meal and return to a normal diet as you can tolerate it without feeling sick to your stomach. 3. After surgery, you may feel pain or discomfort. This should be only transient, but if it persists please contact your doctor. 4. If there are any questions regarding the findings of your procedure, please feel free to contact your doctor. 6. If you are unable to contact your doctor with a problem, contact the hospital at [phone]. 7. Continue all your regular medications unless directed otherwise. I understand the above instructions and have no questions. Signature of Patient or Responsible Adult Escort Date/Time Name of Responsible Adult Escort Signature of Nurse Date/Time Activity:: Activity as Tolerated Diet:: low acid Discharge Orders Discharge Orders: Discharge Order (Routine); Ordered 09/13/21 Ordered By: Mony Mann
[2021-09-13 12:56] VITALS: BP 153/84; PULSE 79; RESP 18; TEMP 36.3; O2SAT 98
[2021-09-13] MEDS: Lactated Ringers 1,000 ML 80 ML IV (13:15)
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
[2021-09-13 13:48] VITALS: BMI 38.5
--- NOTE | 2021-09-13 14:33 | STOM_PTH ---
PATIENT: Darnell Fall LOC: [facility] U#:[id number] AGE/SX: 46/F ROOM: RE09/13/[address]: Mony Mann MD : 1975 BED: DIS: 09/13/2021 SPEC #: [id number] RECD: 09/13/21 17:00 STATUS: ELANA REMoses #: [id number] ADOLPH: 09/13/21 14:[address]: Mony Mann DEPT: Surgical Specimen RECD BY: Jennifer Negrete ENTERED: 09/13/21 17:01 SP TYPE: STOMACH OTHR DR: Cristiane Dubose APRN Tissues: 1 - BIOPSY BOWEL 2 - STOMACH BIOPSY 3 - ESOPHAGUS BIOPSY Procedures: GROSS AND MICRO LEVEL 4 Comments: [id number]
[2021-09-13 15:12] VITALS: BP 107/73; PULSE 78; RESP 18; TEMP 36.2; O2SAT 96
--- NOTE | 2021-09-13 15:33 | W.ANESPOSTOP ---
Postoperative Evaluation Date, Time and Location Date Performed: 09/13/21 Time Performed: 15:34 Patient Location: Day Surgery Unit Vital Signs Most Recent Imported Vital Signs: Most Recent Vital Signs Temp Pulse Resp BP Pulse Ox 36.2 C L 78 18 107/73 96 09/13/21 15:12 09/13/21 15:12 09/13/21 15:12 09/13/21 15:12 09/13/21 15:12 Pain Score Most Recent Pain Score: Most Recent Pain Score Pain Level 0 09/13/21 15:12 Assessment Mental Status: Awake (Alert & Oriented to Patient Baseline) Airway and Respiratory Function: Patent airway with normal (patient baseline) respiratory exam Cardiovascular Function: Hemodynamically Stable Hydration Status: Adequately Hydrated Nausea & Vomiting: No Nausea or Vomiting Pain: Pt. Denies Any Pain Peripheral Nerve Block: Patient did not receive a nerve block Postoperative Comments:: Intraoperatrive desaturation after laryngospasm. Patient is appropriate saturating at 97% RA and is comfortable. Significant expectoration at the end of the case.
[2021-09-13 15:38] VITALS: BP 129/87; PULSE 72; RESP 18; TEMP 36.3; O2SAT 97
== END 2021-09-13 16:05 | disposition home or self-care (01) ==
LOC: SUR 12:37
PROVIDERS: PCP Nurse Practitioner Adult Health; Visit Provider Surgery
PROC: (CPT 43239; principal; 2021-09-13 13:00)
DX: R63.4 Abnormal weight loss (principal); K59.00 Constipation, unspecified; K20.90 Esophagitis, unspecified without bleeding; K29.70 Gastritis, unspecified, without bleeding; K76.0 Fatty (change of) liver, not elsewhere classified; E11.9 Type 2 diabetes mellitus without complications; F41.9 Anxiety disorder, unspecified; F32.A Depression, unspecified; K31.89 Other diseases of stomach and duodenum; K22.89 Other specified disease of esophagus
CPT/HCPCS: 43239; 45378; 88305; J2001

== ENCOUNTER → 2021-10-04 00:46 | Outpatient (CLI) | payer MEDICAID, SELFPAY | PROVIDERS: PCP Nurse Practitioner Adult Health; Visit Provider Obstetrics & Gynecology ==

== ENCOUNTER → 2021-11-05 00:24 | Outpatient (CLI) | payer MEDICAID, SELFPAY ==
--- NOTE | 2021-11-05 06:45 | DI.US_ITS ---
Exam(s) US PELVIS TRANSVAGINAL EXAM: US PELVIS TRANSVAGINAL CLINICAL HISTORY: check stripe,atypical endometrial hyperplasia,n85.02. TECHNIQUE: Transabdominal and transvaginal pelvic ultrasound was performed using standard protocol. COMPARISON: US US PELVIS TRANSVAGINAL from 04/19/2019 FINDINGS: KIDNEYS: Kidneys are symmetric in size. No evidence of renal calculi. No evidence of hydronephrosis. No renal mass or cyst identified. UTERUS: Position: Anteverted. Size: 6 long by 2.9 AP by 3.8 transverse cm Endometrium: 0.2 cm. Normal for patient's menstrual status. Myometrium: Unremarkable. Cervix: Unremarkable. OVARIES: The left ovary was not visualized on this examination. No left adnexal masses are seen. Right: 1.2 x 0.8 x 1.1 cm Cyst or mass: No suspicious cystic or solid masses. DOPPLER: Color: Uniform flow to the right ovary. No hyperemia. CUL-DE-SAC: Free fluid: None. Other: None. IMPRESSION: 1. Normal sonographic appearance of the kidneys. 2. Normal-appearing uterus with endometrial stripe within normal limits. 3. Unremarkable right ovary. The left ovary was not visualized on this examination. No left adnexal mass is identified. DATA REPOSITORY:
== END ==
PROVIDERS: PCP Nurse Practitioner Adult Health; Visit Provider Obstetrics & Gynecology
DX: N85.02 Endometrial intraepithelial neoplasia [EIN] (principal)
CPT/HCPCS: 76830; 76856

== ENCOUNTER → 2021-12-17 00:45 | Outpatient (CLI) | payer MEDICAID, SELFPAY ==
--- NOTE | 2021-12-17 07:30 | DI.MRI_ITS ---
Exam(s) MR UPPER JOINT RT WO EXAM: MR UPPER JOINT RT WO CLINICAL HISTORY: PAIN,LUMP RT WRIST, R22.31 TECHNIQUE: Multiplanar multisequence MRI of the shoulder was performed. COMPARISON: No exams were available for comparison FINDINGS: MARROW:No evidence of fracture or bone contusion contusion in the distal radius and ulna. However, t here is bone edema in the distal half of the scaphoid and a degenerative subarticular cyst in the dis edwar medial aspect of the scaphoid which measures 5 by 4 millimeters.. No abnormal signal in the prox imal scaphoid nor nor in the lunate.. Both focal bone edema is also noted in the most medial aspect of the triquetrum all in its distal medial aspect.. No abnormal signal evident in the subjacent pisi form. No abnormal signal in the metacarpal bases. LIGAMENTS: Scapholunate ligament intact. Lunotriquetral ligament intact. TRIANGULAR FIBROCARTILAGE COMPLEX: Partial tear. Ulnar styloid intact. ARTICULATIONS: Mild amount of increased fluid in the lateral aspect of the radiocarpal joint. Also s lightly increased fluid in the distal radioulnar joint. No significant ulnar variance. CARPAL TUNNEL: No significant findings. No tenosynovitis. Median nerve appears unremarkable. EXTENSOR TENDONS: There is mild fluid in the extensor carpi radialis longus and brevis tendon sheaths within the 2nd ex tensor or compartment. There are no tears of these tendons. In the 1st extensor compartment there is no evidence of de Quervain tenosynovitis of the extensor myriam licis brevis and abductor pollicis longus. IMPRESSION: 1. There is intraosseous edema and cystic degenerative change in the distal half of the scaphoid bone . No fracture at this level. 2. Mild bone edema in the distal medial aspect of the triquetrum. No fracture at this level. 3. Mild tenosynovitis of the extensor carpi radialis longus and brevis tendons. 4. Abnormal signal consistent with partial tear in the TFCC DATA REPOSITORY:
--- NOTE | 2021-12-18 16:52 | DI.VRAD_ITS ---
PROCEDURE INFORMATION: Exam: MR Right Upper Extremity Joint Without Contrast; Wrist Exam date and time: 12/17/2021 2:08 PM Age: 46 years old Clinical indication: Other: Wrist pain TECHNIQUE: Imaging protocol: Magnetic resonance imaging of the Right upper extremity without contrast. Exam focused on the wrist. COMPARISON: No relevant prior studies available. FINDINGS: Bones and cartilage: Marrow signal of the distal radius and ulna is normal. There is edema present in the distal scaphoid. Cystic degenerative changes present in the distal scaphoid measuring 5 mm. Joint spaces: Small amount of fluid in the radial ulna joint. Ulna neutral. Scapholunate ligament: Unremarkable. No tear. Lunotriquetral ligament: Unremarkable. No tear. Triangular fibrocartilage complex: Unremarkable. No tear. Flexor compartment tendons: Unremarkable. No tear. Extensor compartment tendons: Fluid present in the extensor carpi radialis longus and brevis tendon sheaths. Muscles: Unremarkable. No acute abnormality. Soft tissues: Unremarkable. IMPRESSION: 1. Edema and degenerative cystic changes present in the distal scaphoid. No fracture plane identified. Correlate with radiographs. 2. Tenosynovitis of the extensor carpi radialis longus and brevis tendons. Dictated and Authenticated by: Denys Krueger MD. Ordering:SANJUANA Espinosa MD
== END ==
PROVIDERS: PCP Nurse Practitioner Adult Health; Visit Provider Student in an Organized Health Care Education/Training Program
DX: R60.0 Localized edema; M65.9 Synovitis and tenosynovitis, unspecified
CPT/HCPCS: 73221

== ENCOUNTER 2021-12-20 13:51 | Outpatient (CLI) | payer MEDICAID, SELFPAY ==
--- NOTE | 2021-12-20 10:45 | DI.RAD_ITS ---
Exam(s) XR WRIST LT COMP NAVICULAR EXAM: XR WRIST LT COMP NAVICULAR CLINICAL HISTORY: eval L wrist pain. TECHNIQUE: 2D digital imaging was performed. Three views. COMPARISON: CR XR WRIST RT COMPL NAVICULAR from 12/20/2021 FINDINGS: BONES: No acute fracture is present. No bony destructive lesion is seen. Positive ulnar variance. JOINTS: Degenerative changes distal radial ulnar joint. Mild degenerative changes radial carpal join t. Spurring 1st carpal metacarpal joint. SOFT TISSUE: Normal. IMPRESSION: Positive ulnar variance and degenerative changes distal radial joint. Mild degenerative changes 1st carpal metacarpal and radial carpal joints. DATA REPOSITORY: RADIATION DOSE DELIVERED:
--- NOTE | 2021-12-20 10:45 | DI.RAD_ITS ---
Exam(s) XR WRIST RT COMPL NAVICULAR EXAM: XR WRIST RT COMPL NAVICULAR CLINICAL HISTORY: eval R wrist pain. TECHNIQUE: 2D digital imaging was performed. Four views. COMPARISON: No exams were available for comparison FINDINGS: BONES: No acute fracture is present. No bony destructive lesion is seen. Navicular unremarkable. JOINTS: The carpal bones are normally aligned. Minimal degenerative changes 1st carpometacarpal joint . SOFT TISSUE: Normal. IMPRESSION: Minimal degenerative changes. DATA REPOSITORY: RADIATION DOSE DELIVERED:
== END 2021-12-20 13:52 | disposition home or self-care (01) ==
LOC: DIORS 13:51
PROVIDERS: PCP Nurse Practitioner Adult Health; Visit Provider Student in an Organized Health Care Education/Training Program
DX: M25.532 Pain in left wrist (principal); M25.531 Pain in right wrist
CPT/HCPCS: 73110

== ENCOUNTER → 2022-03-30 02:09 | Outpatient (CLI) | payer MEDICAID, SELFPAY ==
--- NOTE | 2022-03-30 07:55 | DI.CT_ITS ---
Exam(s) CT THORACIC SPINE WO EXAM: CT THORACIC SPINE WO CLINICAL HISTORY: THORACIC PAIN radiates to R at T11;? DISC DISEASE,M54.6,G89.29 TECHNIQUE: COMPARISON: No exams were available for comparison FINDINGS: CT examination of the thoracic spine was performed without contrast administration. Images obtained through the upper abdomen show unremarkable appearance of visualized portions of kidn eys and adrenals. Visualized portions of the lungs are clear. There is loss of intervertebral disc height throughout the thoracic spine. There are mild to moderat e hypertrophic endplate and facet joint changes throughout the thoracic spine. There is no acute fra cture. Note is made of small sclerotic lesions of T4 and T11 vertebral bodies, the larger of these is at T11 and measures about 6-7 millimeters in greatest diameter. These are nonspecific, please correlate re garding any history malignancy as metastatic disease could not be excluded. Considering the history of back pain, additional evaluation with MRI or bone scan could be considered. IMPRESSION: Mild to moderate degenerative changes as described above. No compression fracture seen. Small indet erminate sclerotic lesions of T4 and T11 vertebral bodies, consider additional evaluation with MR or bone scan if clinically appropriate. RADIATION DOSE DELIVERED: 772.13mGy.cm Total DLP !Error CTDIvol DATA REPOSITORY: All CT scans at this facility are submitted to the National Radiology Data Registry (NRDR) Dose Index Registry (DIR) with the [employer] ([employer]). RADIATION OPTIMIZATION: All CT scans at this facility use at least one of these dose optimization te chniques: automated exposure control; mA and/or kV adjustment per patient size (includes targeted exa ms where dose is matched to clinical indication); or iterative reconstruction.
== END ==
PROVIDERS: PCP Nurse Practitioner Adult Health; Visit Provider Nurse Practitioner Adult Health
DX: M54.6 Pain in thoracic spine (principal)
CPT/HCPCS: 72128

== ENCOUNTER → 2022-04-27 01:37 | Outpatient (CLI) | payer MEDICAID, SELFPAY ==
--- NOTE | 2022-04-27 07:00 | DI.NM_ITS ---
Exam(s) NM BONE SCAN WHOLE BODY GRP EXAM: NM BONE SCAN WHOLE BODY GRP CLINICAL HISTORY: Further characterize T4 T11,f/u abnl ct,r93.7. TECHNIQUE: Injected Dose: 20 mCi Tc-99m MDP Delayed Images: 2-3 hours. COMPARISON: CR RIGHT KNEE 3 VIEWS from 12/09/[address] THORACIC SPINE WO from 03/30/2022 FINDINGS: Symmetric axial uptake. Bilateral renal excretion is identified. No focal areas of increased uptake a ir seen in the thoracic spine to correspond to the findings on the CT scan from 03/30/2022. No suspi cious uptake is seen in the axilla pedicular skeleton cyst suggest osseous metastatic disease. Mild symmetric uptake is seen in the shoulders in the knees which are likely degenerative in nature. IMPRESSION: 1. No evidence to suggest metastatic disease. DATA REPOSITORY:
== END ==
PROVIDERS: PCP Nurse Practitioner Adult Health; Visit Provider Nurse Practitioner Adult Health
DX: R93.7 Abnormal findings on diagnostic imaging of other parts of musculoskeletal system (principal); M54.6 Pain in thoracic spine
CPT/HCPCS: 78306

== ENCOUNTER 2022-05-04 10:47 | Day surgery (SDC) | payer MEDICAID, SELFPAY ==
--- NOTE | 2022-05-04 09:35 | W.PM.DSUDISC ---
Date of service: 05/04/22 Time of Service: 12:25 Discharge Plan Disposition Patient Disposition: HOME Condition: Good Discharge Details Reason For Visit: Right carpal tunnel syndrome Attending Provider: Jesús Shanks Primary Care Provider: Cristiane Dubose Home Meds and New Rx's Prescriptions: New acetaminophen 500 mg tablet 500 mg PO Q6H PRN (Reason: pain) Qty: 60 2RF hydrocodone-acetaminophen 5-325 mg tablet 1 tab PO Q6H PRN (Reason: severe pain) Qty: 6 0RF Rx Instructions: Take one tablet up to every 6 hours as needed for severe postoperative pain Continued (DME) lancets 28 gauge misc 1 ea Miscellaneous DAILY Qty: 100 3RF Rx Instructions: Dx: E11.9 to maintain HbA1c less than 7%. No insulin. PLEASE DISPENSE BRAND COVERED BY INSURANCE (DME) Blood Glucose Test Strip See Rx Instructions .ROUTE .MEDSUPPLY Qty: 100 3RF Rx Instructions: As directed to check blood glucose daily. No insulin. Dispense covered brand. atorvastatin 40 mg tablet 40 mg PO QHS Qty: 90 3RF Rx Instructions: Cholesterol and diabetes celecoxib [Celebrex] 200 mg capsule 200 mg PO DAILY Qty: 30 2RF Rx Instructions: Take with food for chronic back pain. methocarbamol 500 mg tablet 500 mg PO BID PRN Qty: 20 0RF Rx Instructions: Back muscle spasm albuterol sulfate [ProAir HFA] 90 mcg/actuation HFA aerosol inhaler 1 - 2 puff Inhalation .Q4-6H PRN (Reason: shortness of breath or wheezing) Qty: 1 3RF Rx Instructions: DISPENSE ALBUTEROL INHALER BRAND COVERED BY INSURANCE aspirin 81 mg tablet,delayed release (DR/EC) 81 mg PO DAILY Qty: 90 3RF polyethylene glycol 3350 [Miralax] 17 gram/dose powder 17 g PO DAILY PRN (Reason: constipation) Qty: 238 1RF progesterone micronized [Prometrium] 100 mg capsule 100 mg PO QAM 90 Days Qty: 90 1RF glipizide 5 mg tablet extended release 24 hr 5 mg PO DAILY Qty: 90 3RF quetiapine [Seroquel] 100 mg tablet 100 mg PO BID PRN Rx Instructions: 09/08/21 Dayana Estrella prescribes Start 50mg am, 100 mg pm. Then 100mg bid prazosin 1 mg capsule 2 mg PO QHS Rx Instructions: 09/08/21 Dayana Estrella prescribes omeprazole 40 mg capsule,delayed release(DR/EC) See Rx Instructions .ROUTE .COMPLEX Qty: 90 2RF Dose Instruction: TAKE 1 CAPSULE BY MOUTH DAILY Rx Instructions: TAKE 1 CAPSULE BY MOUTH DAILY Discharge Instructions Additional Instructions: Right carpal tunnel syndrome Discharge Instructions Activity: You may use your fingers for light activity. You should limit any excessive motion or forceful gripping until the sutures have been removed. Dressings: You should keep the initial surgical dressing in place for at least 3 days. You may remove your dressings and get the wound wet after 3 days. You should keep the dressings and the wound clean at all times. You may keep the initial dressing in place until your follow-up but keep the wound covered with light gauze until the sutures are removed. Medications: - You should take Tylenol and your baseline Celebrix around the clock as prescribed or per starcher and tenter range feeder's recommendations. - You have Hydrocodone prescribed for breakthrough pain control. Take only as needed and limit use as much as possible. This may cause constipation. Follow-up: 7-10 days for wound check and suture removal. Stand Alone Forms: Anesthesia Discharge Inst., Hillary Hinojosa ([facility]) Referrals: Jesús Shanks MD [ [facility] STAFF PHYSICIAN] - Activity:: Elevate Remove Dressings/Wound Care:: 72 hours Shower/Bathe:: 72 hours Activity:: Activity as Tolerated Diet:: As Tolerated DS: Diagnosis Discharge Diagnosis (1) Open Carpal Tunnel release:
[2022-05-04 11:37] VITALS: BP 149/97; PULSE 74; RESP 18; TEMP 36.5; O2SAT 99
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
[2022-05-04 12:02] VITALS: BMI 37.8
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
[2022-05-04] MEDS: Lactated Ringers 1,000 ML 80 ML IV (12:09)
[2022-05-04] MEDS: ceFAZolin 2 GM/50 ML BAG IVPB (12:17)
[2022-05-04] MEDS: Sodium Bicarbonate 50 MEQ/50 ML VIAL (12:45)
[2022-05-04] MEDS: Lidocaine 1% Pres-Free W/EPI 1/200,000 10 ML VIAL (12:45)
[2022-05-04 13:04] VITALS: BP 123/83; PULSE 80; RESP 16; TEMP 36; O2SAT 96
--- NOTE | 2022-05-04 13:08 | W.ANESPOSTOP ---
Postoperative Evaluation Date, Time and Location Date Performed: 05/04/22 Time Performed: 13:08 Patient Location: Day Surgery Unit Vital Signs Most Recent Imported Vital Signs: Most Recent Vital Signs Temp Pulse Resp BP Pulse Ox 36.5 C 74 18 149/97 H 99 05/04/22 11:37 05/04/22 11:37 05/04/22 11:37 05/04/22 11:37 05/04/22 11:37 Most Recent Manually Entered Vital Signs: Adult Blood Pressure: 123/83 Heart Rate: 79 Respirations: 12 Oxygen Saturation (%): 96 Temperature (C): 36.3 C Pain Score (0-10 Scale): 0 Pain Score Most Recent Pain Score: Most Recent Pain Score Pain Level 6 05/04/22 11:37 Assessment Mental Status: Awake (Alert & Oriented to Patient Baseline) Airway and Respiratory Function: Patent airway with normal (patient baseline) respiratory exam Cardiovascular Function: Hemodynamically Stable Hydration Status: Adequately Hydrated Nausea & Vomiting: No Nausea or Vomiting Pain: Pt. Denies Any Pain Peripheral Nerve Block: Patient did not receive a nerve block
[2022-05-04 13:09] VITALS: BP 123/83; PULSE 79; RESP 12; TEMPC 36.3; O2SAT 96
[2022-05-04 13:31] VITALS: BP 154/96; PULSE 71; RESP 18; TEMP 36; O2SAT 98
--- NOTE | 2022-05-04 21:30 | ROE_ITS ---
Date of service: 05/04/22 Time of Service: 12:00 Operative Note Operative Note DATE OF PROCEDURE: 05/04/22 PRE-OP DIAGNOSIS: Recurrent Right Carpal Tunnel Syndrome POST-OP DIAGNOSIS: same PROCEDURE: Open Carpal Tunnel Release - RIGHT SURGEON: Jesús Shanks ANESTHESIA TYPE: General LMA/ETT Refer to Anesthesia Record ESTIMATED BLOOD LOSS: 0 PATHOLOGY: none sent TOURNIQUET TIME: 15 COMPLICATIONS: None Patient was transported to: same day Patient's condition: stable Indications: July is a 47 year old female who I have seen for recurrent carpal tunnel syndrome. She had a previous open carpal tunnel release by Dr. Ventura with initial results but then worsening return of symptoms. Therefore, I recommended proceeding with revision carpal tunnel release in an open fashion. I reviewed the risk of the procedure to include bleeding, infection, pain, stiffness, continued numbness, damage to nerves and vessels, damage to muscles and tendons, need for repeat procedures. Despite these risk, patient desired to proceed. Findings: There was a tightened transverse carpal ligament. It was released fully released. The median nerve was inspected and showed no signs of adhesions or injury although it appeared to be a bifid median nerve. Procedure Description: July was greeted in the preoperative holding area. The correct site was identified and marked. The consent was reviewed the patient and signed. The id story physical was updated. Patient was taken back to the operating room and placed in the supine position with the right hand placed on a hand table. A nonsterile tourniquet was placed high up onto the arm. The hand and forearm was then prepped with ChloraPrep and draped in standard fashion. Prophylactic antibiotics in the form of cefazolin were given. A timeout was performed for safe surgery. The surgical site was then injected and anesthetized with 1% lidocaine with epinephrine buffered with sodium bicarbonate. The radial border of the fourth ray was marked on the skin as well as any other pertinent surface anatomy. The limb was exsanguinated and cuff inflated to 250 mmHg. Using 15 blade the skin was incised sharply. Blunt dissection was carried down to the level of the palmar fascia. This was sharply divided making sure to protect any crossing neurovascular branches. Once this was divided the fibers of the transverse carpal ligament were identified. Using a Gladstone, I was able to place this underneath a portion of the transverse carpal ligament. A knife was then used to cut directly onto the Gladstone. This release the transverse carpal ligament. Using the Gladstone to protect underlying tendons and the median nerve, I released the remainder of the transverse carpal ligament. It was notably thickened and tight. A scissor was used to complete the far aspects after making sure there is no interposed tissue. There is notable separation of the leaflets. Elevating, lifting up, the radial flap of the transverse carpal ligament exposed the median nerve. Any adhesions between it and the transverse carpal ligament were released. It appeared to be a bifid median nerve. This was traced proximally and distally and cleraly had two main trunks within the carpal tunne l. It was fully inspected and showed no signs of injury or damage. The wound was then fully irrigated. The skin and deeper tissues were closed with a interrupted 4-0 nylon suture. The tourniquet was deflated and there was return of blood flow to all digits. No excessive bleeding from the wound. 4 x 4 gauze was applied followed by Kerlix wrap and an Nuno wrap. The hand was placed into a removable brace. At the end the case all counts are correct. The patient tolerated the procedure well and was transferred back to the day surgery area in a stable condition.
== END 2022-05-04 13:35 | disposition home or self-care (01) ==
PROVIDERS: PCP Nurse Practitioner Adult Health; Visit Provider Student in an Organized Health Care Education/Training Program
PROC: (CPT 64721; principal; 2022-05-04 13:30)
DX: G56.01 Carpal tunnel syndrome, right upper limb (principal); E11.40 Type 2 diabetes mellitus with diabetic neuropathy, unspecified; G47.33 Obstructive sleep apnea (adult) (pediatric); F12.20 Cannabis dependence, uncomplicated
CPT/HCPCS: 29848; 81025; J0690; J2250

== ENCOUNTER 2022-10-12 10:23 | Outpatient (REF) | payer MEDICAID, SELFPAY | END 2022-10-12 10:24 | disposition home or self-care (01) | LOC: NCHCN 10:23 | PROVIDERS: PCP Nurse Practitioner Adult Health; Visit Provider Physician Assistant Medical | DX: Z20.818 Contact with and (suspected) exposure to other bacterial communicable diseases (principal); J02.9 Acute pharyngitis, unspecified | CPT/HCPCS: 87070 ==

== ENCOUNTER 2022-12-05 03:00 | Outpatient (CLI) | payer MEDICAID, SELFPAY ==
[2022-12-05 08:01] LABS: COMMENT (LAB VIEW ONLY) 225.33 mg/dL; Microalb ug/mg Crea 19.6 ug/mg Cr
[2022-12-05 08:03] LABS: BUN 16 mg/dL (7-18); CREATININE 1.1 mg/dL (0.55-1.02); Calcium 8.9 mg/dL (8.5-10.1); Calculated LDL 102 mg/dL (<100); Chloride 105 mmol/L (98-107); Cholesterol 168 mg/dL (<200); Estimated GFR 61.98 (mL/min/1.73m2); Glucose 162 mg/dL (74-106); HDL Cholesterol 38 mg/dL (40-60); Sodium 143 mmol/L (136-145); Triglyceride 142 mg/dL (<150)
[2022-12-05 08:13] LABS: Hemoglobin A1C 6.2 % (<5.7)
== END 2022-12-05 03:01 | disposition home or self-care (01) ==
LOC: LBO 03:01
PROVIDERS: Absent Provider Nurse Practitioner Adult Health; PCP Nurse Practitioner Adult Health; Visit Provider Nurse Practitioner Adult Health
DX: E11.9 Type 2 diabetes mellitus without complications (principal)
CPT/HCPCS: 36415; 80048; 80061; 82043; 82570; 83036

== ENCOUNTER → 2023-02-07 01:25 | Outpatient (CLI) | payer MEDICAID, SELFPAY ==
--- NOTE | 2023-02-07 06:45 | DI.RAD_ITS ---
Exam(s) XR ELBOW LT COMPLETE EXAM: XR ELBOW LT COMPLETE CLINICAL HISTORY: h/o old fx; suspect lat epicondylitis,LT ELBOW PAIN, M25.522. TECHNIQUE: 2D digital imaging was performed. COMPARISON: CR XR WRIST LT COMP NAVICULAR from 12/20/2021 FINDINGS: 3 views There is dislocation the radial head relative to the capitellum. No fractures evident. No loose bod ies. There is no obvious joint effusion. No swelling of the olecranon fossa. No osseous lesions. IMPRESSION: There is dislocation of the radial head relative to the capitellum. Wet read performed DATA REPOSITORY: RADIATION DOSE DELIVERED:
--- NOTE | 2023-02-07 06:45 | DI.MAMMO_ITS ---
Exam(s) MAMMO SCREENING EXAM: MAMMO SCREENING CLINICAL HISTORY: screening,Z12.39. TECHNIQUE: Bilateral full field digital CC and MLO mammographic images were obtained with 3D tomosyn thesis and utilizing computer aided detection (CAD). COMPARISON: Prior mammograms were reviewed. FINDINGS: There has been no significant change in the appearance and distribution of the fibroglandular tissue. Small group of microcalcifications in the left breast associated with small nodule appear unchanged a nd exhibit benign appearance There are no new spiculated masses nor new malignant appearing microcalcification groups. There is no significant architectural distortion nor skin thickening-retraction. IMPRESSION: No radiographic evidence of malignancy. Stable benign-appearing findings. BI-RADS Category 2 - Benign Findings Breast Density - Category B - Scattered areas of fibroglandular density Breast density Category C or D implies that the patient has dense breast tissue. Dense breast tissue can make it harder to find cancer on a mammogram. Dense breast tissue is also associated with an incr eased risk of breast cancer. This information about the result of the mammogram report was provided to the patient to raise their awareness. Use this report when you speak with the patient about their risks for breast cancer, which includes their family history. At that time, you may recommend additional screening tests (Ultrasoun d or MRI) as these tests may add significant information. A negative radiographic report should not delay biopsy if a dominant or clinically suspicious mass is present. Up to ten percent of cancers are not identified on mammography. A negative report may reinforce clinical impression. Adenosis and dense breasts may obscure an underlying neoplasm. False positive reports average 6 to 10%. Patient will receive a letter notifying them of these results.
== END ==
PROVIDERS: PCP Nurse Practitioner Adult Health; Visit Provider Nurse Practitioner Adult Health
DX: Z12.31 Encounter for screening mammogram for malignant neoplasm of breast (principal); S53.012A Anterior subluxation of left radial head, initial encounter
CPT/HCPCS: 77063; 77067; 73080

== ENCOUNTER → 2023-02-16 01:32 | Outpatient (CLI) | payer MEDICAID, SELFPAY ==
--- NOTE | 2023-02-16 11:00 | DI.RAD_ITS ---
Exam(s) XR FOREARM LT EXAM: XR FOREARM LT CLINICAL HISTORY: pain L forearm--radial ulnar sides; no trauma,s53.006a. TECHNIQUE: 2D digital imaging was performed. Two views. COMPARISON: CR LEFT WRIST COMPLETE from 01/26/2013 CR XR ELBOW LT COMPLETE from 02/07/2023 FINDINGS: BONES: Chronic appearing deformity of the distal ulna. No acute fracture is present. No bony destruc tive lesion is seen. Dislocation of the radial head anteriorly with respect to the capitellum is aga in noted. SOFT TISSUE: Normal. IMPRESSION: Dislocation of the radial head anteriorly. Chronic appearing deformity of the distal ulna. DATA REPOSITORY: RADIATION DOSE DELIVERED:
== END ==
PROVIDERS: PCP Nurse Practitioner Adult Health; Visit Provider Nurse Practitioner Adult Health
DX: S53.015A Anterior dislocation of left radial head, initial encounter (principal); X58.XXXA Exposure to other specified factors, initial encounter
CPT/HCPCS: 73090

== ENCOUNTER 2023-08-24 10:51 | Emergency (ER) | payer MEDICAID, SELFPAY ==
[2023-08-24] VITALS (8 sets, daily range): BP systolic 206–249; BP diastolic 73–105; PULSE 56–87; RESP 16–22; TEMP 36.5–36.6; O2SAT 90–100
--- NOTE | 2023-08-24 10:45 | RT.EKG_ITS ---
APPROVED REPORT Exam: Resting ECG Reason for Exam: sob Patient Location: E HR:57 bpm ECG Measurements Heart Rate 57 AXIS UT 137 P 24 QRSd 78 QRS 65 QT 491 T 57 QTc 480 Conclusion Sinus bradycardia...rate< 60
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
[2023-08-24] MEDS: Droperidol 5 MG/2 ML VIAL 2.5 MG IVP (11:23)
[2023-08-24] MEDS: Normal Saline 1,000 ML 1000 ML IV (11:25)
[2023-08-24] MEDS: HYDROmorphone 2 MG/ML SYR 0.5 MG IVP (11:25)
[2023-08-24] MEDS: FAMOTIDINE 20 MG in Normal Saline 100 ML 400 MG IVPB (11:26)
[2023-08-24 11:34] LABS: BE (Venous) 1 mmol/L (-2-3); HCO3 (Venous) 24 mmol/L (23-28); O2 Sat (Venous) 80 %; TCO2 (Venous) 21 mmol/L (24-29); pCO2 (Venous) 32 mmHg (41-51); pH (Venous) 7.49 (7.31-7.41); pO2 (Venous) 38 mmHg
[2023-08-24 11:37] LABS: Lactate 2.5 mmol/L (0.6-1.4)
[2023-08-24 11:39] LABS: Abs Immature Grans 0.05 10^3/uL (0.0-0.06); Absolute Basophil Count 0.03 10^3/uL (0.0-0.2); Absolute Monocyte Count 0.34 10^3/uL (0.1-0.8); Basophils % 0.2; Eosinophils % 0.2; HCT 48.3 % (36.0-46.0); HGB 16.5 g/dL (11.2-15.7); Immature Grans % 0.4; Lymphocytes % 11.1; MCH 30.8 pg (27.0-33.0); MCHC 34.2 % (32.0-36.0); MCV 90 fL (80-95); MPV 10.5 fL (8.0-11.0); Monocytes % 2.7; Neutrophils % 85.4; Platelet Count 158 10^3/uL (130-400); RBC 5.35 10^6/uL (3.93-5.22); RDW 13.9 % (11.7-14.6); RDW-SD 46.4 fL; WBC 12.56 10^3/uL (4.4-10.8)
[2023-08-24 11:44] LABS: Absolute Eosinophil Count 0.03 10^3/uL (0.0-0.7); Absolute Lymphocyte Count 1.39 10^3/uL (1.2-3.4); Absolute Neutrophil Count 10.73 10^3/uL (1.2-6.7)
--- NOTE | 2023-08-24 11:45 | DI.CT_ITS ---
Exam(s) CT ABDOMEN PELVIS W EXAM: CT ABDOMEN PELVIS W CLINICAL HISTORY: epigastric pain w vomiting, significant tenderness. TECHNIQUE: Imaging Protocol: Axial computed tomography images with coronal and sagittal reformatted images were created and reviewed CONTRAST MATERIAL: Intravenous: Omnipaque 350 Contrast volume:100 ml Oral: / no COMPARISON: CT CT CHEST/ABD/PEL W from 08/19/2021 FINDINGS: ABDOMEN and PELVIS: Lung Bases: No acute findings. Liver: Moderate hepatic steatosis. No measurable mass. Gallbladder and biliary tract: Status post cholecystectomy. No biliary dilatation. Pancreas: Normal density. No abnormal calcifications or inflammatory process. No evidence of mass. Spleen: Normal. Kidneys: Normal size, contour and axis. No radiodense stones. No obstructive uropathy. No suspicious masses seen. Adrenal glands: No masses seen. Vasculature: Abdominal aorta non-dilated. Severe atherosclerotic changes at the distal abdominal aor ta and proximal iliac arteries.. Soft tissues: Unremarkable. Bladder: No gross wall thickening. No calculi.No focal mass. Bowel: No obstruction. No bowel wall thickening. Appendix normal. Peritoneal cavity: No ascites. No focal collection or mesenteric inflammatory response. Bones: Degenerative disc changes greatest at L4-5.. Reproductive organs: Within normal limits. Lymph nodes: Unremarkable. IMPRESSION:: Unremarkable CT scan of the abdomen and pelvis. RADIATION DOSE DELIVERED: Total DLP DATA REPOSITORY: All CT scans at this facility are submitted to the National Radiology Data Registry (NRDR) Dose Index Registry (DIR) with the [employer] (A[employer]). RADIATION OPTIMIZATION: All CT scans at this facility use at least one of these dose optimization te chniques: automated exposure control; mA and/or kV adjustment per patient size (includes targeted exa ms where dose is matched to clinical indication); or iterative reconstruction.
[2023-08-24 12:03] LABS: ALT 44 U/L (14-59); AST 26 U/L (15-37); Albumin 3.8 g/dL (3.4-5.0); Alkaline Phosphatase 170 U/L (46-116); Anion Gap 14.1 mmol/L (3-11); BUN 12 mg/dL (7-18); Bilirubin, Total 1.1 mg/dL (0.2-1.0); CO2 23.9 mmol/L (21.0-32.0); Calcium 9.1 mg/dL (8.5-10.1); Chloride 100 mmol/L (98-107); Estimated GFR 69.06 (mL/min/1.73m2); Glucose 232 mg/dL (74-106); Lipase 14 U/L (16-77); Sodium 138 mmol/L (136-145); Total Protein 7.2 g/dL (6.4-8.2); Troponin I < 50 ng/L (< or =60)
[2023-08-24] MEDS: Normal Saline - Diluent 50 ML VIAL IJ (13:24)
[2023-08-24 13:52] LABS: Lactate 1.9 mmol/L (0.6-1.4)
[2023-08-24 14:15] LABS: Troponin I < 50 ng/L (< or =60)
[2023-08-24 15:11] LABS: COVID-19 PCR Negative (Negative); Influenza A PCR Negative (Negative); Influenza B PCR Negative (Negative); RSV PCR Negative (Negative)
[2023-08-24 15:12] LABS: Source Nasopharynx
--- NOTE | 2023-09-06 15:03 | NUR.NOTE ---
Accessed pt chart to reconcile EKG orders with EKG?s in [facility]. Nursing Note:
== END 2023-08-24 14:58 | disposition home or self-care (01) ==
PROVIDERS: Emergency Provider Nurse Practitioner Family; PCP Nurse Practitioner Adult Health
DX: K52.9 Noninfective gastroenteritis and colitis, unspecified (principal); E11.9 Type 2 diabetes mellitus without complications; E78.5 Hyperlipidemia, unspecified; Z11.52 Encounter for screening for COVID-19; Z79.84 Long term (current) use of oral hypoglycemic drugs; Z79.82 Long term (current) use of aspirin; F17.210 Nicotine dependence, cigarettes, uncomplicated
CPT/HCPCS: 80053; 82805; 82962; 83690; 87637; 93005; 96361; 96374; 96375; 99285; 74177; 83605; 83735; 84484; 85025; 93010; 99284; J1170; J1790

== ENCOUNTER 2025-03-29 12:57 | Emergency (ER) | payer MEDICAID, SELFPAY ==
--- NOTE | 2025-03-29 12:45 | RT.EKG_ITS ---
APPROVED REPORT Exam: Resting ECG Reason for Exam: SOB Patient Location: E HR:84 bpm ECG Measurements Heart Rate 84 AXIS WV 156 P 6 QRSd 70 QRS 47 QT 366 T 56 QTc 434 Conclusion Sinus rhythm, rate 84 No interval abnormalities No STEMI No significant changes from prior
[2025-03-29 13:02] VITALS: BP 166/118; PULSE 85; RESP 20; TEMP 36.8; O2SAT 91
[2025-03-29 13:07] VITALS: BP 166/118; PULSE 85; RESP 20; TEMP 36.8; O2SAT 91
[2025-03-29 13:15] VITALS: RESP 18
[2025-03-29] MEDS: Albuterol/Ipratropium 3 ML UPD VIAL (13:40)
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
[2025-03-29 13:55] LABS: COVID-19 PCR Negative (Negative); RSV PCR Negative (Negative)
[2025-03-29] MEDS: methylPREDNISolone SUCC 125 MG VIAL IVP (14:11)
[2025-03-29 14:18] LABS: BE (Venous) 3 mmol/L (-2-3); HCO3 (Venous) 28 mmol/L (23-28); O2 Sat (Venous) 93 %; TCO2 (Venous) 24 mmol/L (24-29); pCO2 (Venous) 42 mmHg (41-51); pO2 (Venous) 61 mmHg
[2025-03-29 14:20] LABS: Abs Immature Grans 0.02 10^3/uL (0.0-0.06); HCT 43.9 % (36.0-46.0); HGB 14.6 g/dL (11.2-15.7); Immature Grans % 0.2 %; MCH 29.6 pg (27.0-33.0); MCHC 33.3 % (32.0-36.0); MCV 89 fL (80-95); MPV 10.8 fL (8.0-11.0); Platelet Count 154 10^3/uL (130-400); RBC 4.93 10^6/uL (3.93-5.22); RDW 14.1 % (11.7-14.6); RDW-SD 46.0 fL; WBC 9.41 10^3/uL (4.4-10.8)
--- NOTE | 2025-03-29 14:44 | DI.RAD_ITS ---
Exam(s) XR CHEST 2V PA LATERAL EXAM: XR CHEST 2V PA LATERAL CLINICAL HISTORY: SOB TECHNIQUE: 2D digital imaging was performed of the chest. Two images were obtained. PA and lateral views were obtained. COMPARISON: CR CHEST 2 VIEWS PA,LAT from 03/09/2012 CR CHEST 2 VIEWS PA,LAT from 08/31/2016 FINDINGS: MEDIASTINUM: Normal. HEART: Normal. PULMONARY VASCULATURE: Normal. LUNGS: There is mild prominence of the interstitium bilaterally and diffusely in the lungs. There are no focal consolidating infiltrates present. There is mild bronchial wall thickening. PLEURAL SPACE: No pleural effusion or pneumothorax. BONE:Within normal limits for the patient's age. OTHER FINDINGS:Normal. IMPRESSION: 1. Mild bilateral bronchial wall thickening and interstitial disease. This is nonspecific but causes include interstitial pneumonia including DU IP and non UIP causes, autoimmune or collagen vascular diseases, interstitial edema or pneumonia. Please correlate clinically. A high-resolution CT scan of the chest should be considered for further characterization. 2. There is no focal consolidating infiltrate present. 3. The preliminary [facility] report was reviewed. DATA REPOSITORY: RADIATION DOSE DELIVERED:
[2025-03-29 14:47] LABS: D-Dimer 646 ng/mlFEU (<500)
[2025-03-29] MEDS: Albuterol/Ipratropium 3 ML UPD VIAL UPD ×2 (15:00→15:51)
[2025-03-29 15:13] LABS: ALT 23 U/L (14-59); AST 17 U/L (15-37); Albumin 3.4 g/dL (3.4-5.0); Alkaline Phosphatase 115 U/L (46-116); Anion Gap 7.9 mmol/L (3-11); BUN 9 mg/dL (7-18); Bilirubin, Total 0.6 mg/dL (0.2-1.0); CO2 30.1 mmol/L (21.0-32.0); Calcium 9.0 mg/dL (8.5-10.1); Chloride 101 mmol/L (98-107); Estimated GFR 77.40 (mL/min/1.73m2); Glucose 190 mg/dL (74-106); Magnesium 2.2 mg/dL (1.8-2.4); Potassium 4.4 mmol/L (3.5-5.1); Sodium 139 mmol/L (136-145); Total Protein 7.5 g/dL (6.4-8.2); Troponin I 7 ng/L (<or=51)
--- NOTE | 2025-03-29 15:36 | DI.[facility]_ITS ---
PROCEDURE INFORMATION: Exam: XR Chest Exam date and time: 03/29/2025 2:39 PM Age: 50 years old Clinical indication: Shortness of breath TECHNIQUE: Imaging protocol: Radiologic exam of the chest. Views: 2 views. COMPARISON: CT CHEST/ABD/PEL W 08/19/2021 10:31 AM FINDINGS: Lungs: There is subtle prominence of the interstitial pattern throughout. This could represent mild chronic interstitial change. There is no acute infiltrate identified. No consolidation Pleural spaces: No effusions or pneumothoraces. Heart/Mediastinum: The heart is not enlarged. The superior mediastinum is unremarkable. Bones/joints: No acute bony change of the thoracic spine or ribs. IMPRESSION: 1. Mild prominence of the interstitial pattern throughout which may represent chronic interstitial change. No definite acute infiltrate identified. Dictated and Authenticated by: Bin Yepez MD. Orderin Flor Linda MD
--- NOTE | 2025-03-29 15:36 | NUR.NOTE ---
Nursing Note: PT spo2 88% this rn went in to room to check pt. Pt sleeping easily woken with verbal. Said she has a history of sleep apnea 2l o2 applied NC
[2025-03-29 15:51] VITALS: PULSE 84; RESP 18; O2SAT 94
[2025-03-29 16:20] LABS: Troponin I 6 ng/L (<or=51)
== END 2025-03-29 16:55 | disposition home or self-care (01) ==
PROVIDERS: Emergency Provider Registered Nurse Emergency; PCP Nurse Practitioner Adult Health
DX: J45.901 Unspecified asthma with (acute) exacerbation (principal); I10 Essential (primary) hypertension; E11.40 Type 2 diabetes mellitus with diabetic neuropathy, unspecified; E78.5 Hyperlipidemia, unspecified; F17.210 Nicotine dependence, cigarettes, uncomplicated
CPT/HCPCS: 80053; 82805; 87637; 93005; 94640; 96374; 99284; 71046; 83735; 84484; 85025; 85379; 93010; J2919; J7620